=== PATIENT | male | born 1960 | race Caucasian/White ===

== ENCOUNTER 2016-06-09 19:10 | Emergency (ER) | payer BC ==
--- NOTE | ~2016-06-09 | ER ---
PATIENT'S NAME: AURE VIEIRA [facility] AGE: 56 Y [address] ROOM: [place] [address] LOCATION: [facility] ADMIT DATE: 06/09/2016 ER/Outpatient Report DISCHARGE DATE: 06/09/2016 FAMILY PHYSICIAN: Tanmay Church MD ATTENDING PHYSICIAN: Jeffry Hernanedz Time of Patient's Arrival: 1910 hours. Time of Patient's Evaluation: 1932 hours. CHIEF COMPLAINT: Laceration to fingers. 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 He states he has a little juan to his right middle finger. He has a larger laceration to the right ring finger and a laceration through the nail of his right pinky finger. The patient states he has good range of motion of all of his fingers. He is not for sure when his last tetanus shot was and he denies any other injury at this time. ALLERGIES: NO KNOWN ALLERGIES. MEDICATIONS: None. PAST MEDICAL HISTORY: Negative. PAST SURGERIES: Ear surgery and tonsillectomy. SOCIAL HISTORY: Denies smoking use. He drinks beer or bourbon 2-3 times a week. REVIEW OF SYSTEMS: CONSTITUTIONAL: Denies any change in weight or fatigue. MUSCULOSKELETAL: No weakness or myalgias. HEME: No easy bruising or bleeding. SKIN: He has some lacerations to his middle, ring, and pinky fingers on his right hand. PHYSICAL EXAMINATION: PATIENT'S NAME: AURE VIEIRA [facility] AGE: 56 Y [address] ROOM: [place] [address] LOCATION: [facility] ADMIT DATE: 06/09/2016 ER/Outpatient Report DISCHARGE DATE: 06/09/2016 FAMILY PHYSICIAN: Tanmay Church MD ATTENDING PHYSICIAN: Jeffry Hernandez VITAL SIGNS: Height 6 feet stated, weight 88 kg taken, blood pressure is 121/81, pulse 72, respirations 16, temperature 96.7 degrees tympanically, and saturations 95% on room air. Maxwell Coma Score is 15. GENERAL: Alert, calm, well-developed male, in no acute distress. EXTREMITIES: No clubbing or cyanosis. He has full range of motion of all of his right hand. SKIN: He has a small little superficial abrasion noted to his right middle finger. He has 2.5 cm flap-like laceration noted to the right ring finger. It is in between his distal and middle joints. On his pinky finger, he has 1.5 cm laceration extends right diagonally through the pinky nail and it goes approximately less than 0.5 cm beyond the nail. They are not actively bleeding at this time. LABORATORY DATA: None were done. X-RAYS: X-rays of the right hand showed no obvious fracture, no foreign object noted. IMPRESSION: 1. 2.5 cm flap-like laceration to right ring finger. 2. 1.5 cm laceration through the nail of his right pinky finger and he has a small abrasion noted to his right middle finger. ASSESSMENT AND PLAN: I did numb the laceration site on his right ring finger with 1% lidocaine. I cleansed thoroughly with normal saline and flushed with normal saline. I did repair the laceration using 4-0 Ethilon. The patient did tolerate this well. I then cleansed and flushed out the right pinky finger laceration over his nail. I did repair that laceration using Dermabond skin glue. The patient did tolerate that as well. We did place a finger splint to his pinky finger to keep from bumping the tip of his finger. We placed antibiotic ointment bandage to his right ring finger. We will dismiss him to home with a wound care handout. He may take Tylenol or ibuprofen as needed for pain control. He should follow up with primary care physician in 7-10 days for suture removal. The patient understands and agrees with care. CHRISTIANE AJ PA-C FOR MD EMMA DAVIDSON/[place] PATIENT'S NAME: AURE VIEIRA [facility] AGE: 56 Y [address] ROOM: [place] [address] LOCATION: [facility] ADMIT DATE: 06/09/2016 ER/Outpatient Report DISCHARGE DATE: 06/09/2016 FAMILY PHYSICIAN: Tanmay Church MD ATTENDING PHYSICIAN: Jeffry Hernandez /[id number] d: t: 06/12/16 1154, OUTPATIENT REPORT
== END 2016-06-09 21:15 | disposition disaster alternative care site (69) ==
LOC: GACC 19:10
PROC: 0HQFXZZ Repair Right Hand Skin, External Approach (ICD-10-PCS; principal; 2016-06-09)
DX: S61.214A Laceration without foreign body of right ring finger without damage to nail, initial encounter (principal); S61.316A Laceration without foreign body of right little finger with damage to nail, initial encounter; S60.412A Abrasion of right middle finger, initial encounter; Z23 Encounter for immunization; W28.XXXA Contact with powered lawn mower, initial encounter